=== PATIENT | female | born 1965 | race Caucasian/White ===

== ENCOUNTER 2022-05-07 19:40 | Emergency (ER) | payer OTHER, SELFPAY ==
--- NOTE | ~2022-05-07 | XR_ITS ---
EXAMINATION: XR chest 2V DATE: 05/07/2022 21:07 INDICATION: Chest pain and dizziness TECHNIQUE: PA and lateral views of the chest were obtained. COMPARISON: Chest radiograph dated 10/16/2009 FINDINGS: Small lung volumes. Curvilinear opacity projecting over the heart on the lateral projection consisten t with discoid atelectasis, unclear whether in the lingula or right middle lobe. No other airspace op acities, pulmonary edema, pleural effusion or pneumothorax. The cardiomediastinal silhouette is homar l. Moderate thoracic spondylosis. IMPRESSION: 1. Mild curvilinear atelectasis/scarring, unclear whether in the lingula or right middle lobe. Reviewed, dictated and finalized at location A. IMPRESSION: 1. Mild curvilinear atelectasis/scarring, unclear whether in the lingula or rig ht middle lobe.
[2022-05-07 19:41] VITALS: BP 162/102; PULSE 123; RESP 24; O2SAT 98
--- NOTE | 2022-05-07 19:44 | ECG_ITS ---
Measurements Intervals [place] Rate: 100 P: 40 [place]: 124 QRS: -12 QRSD: 107 T: 49 QT: 370 QTc: 478 Interpretive Statements SINUS TACHYCARDIA DELAYED PRECORDIAL R/S TRANSITION BORDERLINE ST-T WAVE ABNORMALITY- ANT/INF LEADS BORDERLINE ECG NO PREVIOUS ECG AVAILABLE FOR COMPARISON Electronically Signed On 05-08-2022 14:42:31 CDT by Sushil Madrid D.O.
[2022-05-07 20:06] LABS: Basophils Absolute Auto 0.1 K/mm3 (0.0-0.1); Basophils Percent Auto 0.6 % (0.2-1.2); Eosinophils Absolute Auto 0.3 K/mm3 (0-0.3); Hematocrit 43.5 % (37.0-47.0); Immature Granulocyte Absolute 0.03 K/mm3 (0.00-0.031); Immature Granulocyte Percent A 0.2 % (0-0.5); Lymphocytes Absolute Auto 4.34 K/mm3 (0.9-3.2); Lymphocytes Percent Auto 33.2 % (18.3-44.2); Mean Corpuscular HGB Conc 32.2 g/dl (32-36); Mean Corpuscular Hemoglobin 27.3 pg (26-34); Mean Platelet Volume 9.2 fl (7.4-10.4); Monocytes Absolute Auto 1.1 K/mm3 (0.1-0.6); Monocytes Percent Auto 8.5 % (2.6-8.5); Neutrophils Absolute Auto 7.3 K/mm3 (1.3-6.7); Neutrophils Percent Auto 55.5 % (45.5-73.1); Platelet Count Result 401 k/mm3 (150-375); Red Blood Count 5.12 M/mm3 (4.2-5.4); Red Cell Distribution Width 14.5 % (11.5-14.5); White Blood Count 13.1 K/mm3 (4.5-10.0)
[2022-05-07 20:18] LABS: Alanine Aminotransferase 30 U/L (6-35); Albumin Level 4.7 g/dL (3.5-5.1); Alkaline Phosphatase 80 U/L (38-126); Anion Gap 20 mmol/L (8-16); Aspartate Amino Transferase 34 U/L (14-36); Bilirubin,Total 0.9 mg/dL (0.2-1.3); Blood Urea Nitrogen 16 mg/dL (7-17); Calcium 9.4 mg/dL (8.4-10.2); Carbon Dioxide 17 mmol/L (22-30); Chloride 103 mmol/L (98-107); Estimated CRCL calculation 98 ml/min; Estimated Glomerular Filt Rate > 60; Glucose 126 mg/dL (65-110); Lipase 78 U/L (23-300); Potassium 3.8 mmol/L (3.4-5.0); Sodium 140 mmol/L (137-145)
[2022-05-07 20:20] LABS: INR 1.1; Prothrombin Time 13.4 Seconds (11.1-14.7)
[2022-05-07 20:21] LABS: Partial Thromboplastin Time 22.2 SECONDS (22.3-36.8)
[2022-05-07 20:28] LABS: Troponin I < 0.012 ng/mL (0.000-0.034)
[2022-05-07 21:30] VITALS: BP 173/80; PULSE 60; RESP 16; O2SAT 96
[2022-05-07 22:24] VITALS: BP 160/80; PULSE 61; RESP 13; O2SAT 94
[2022-05-07 23:22] LABS: Troponin I < 0.012 ng/mL (0.000-0.034)
--- NOTE | 2022-05-08 00:01 | ECG_ITS ---
Measurements Intervals [place] Rate: 79 P: 44 [place]: 134 QRS: 6 QRSD: 101 T: 22 QT: 398 QTc: 456 Interpretive Statements SINUS RHYTHM BORDERLINE ST-T WAVE ABNORMALITY- ANTERIOR LEADS BASELINE ARTIFACT- I, III, AVL, V2 BORDERLINE ECG NO PREVIOUS ECG AVAILABLE FOR COMPARISON Electronically Signed On 05-08-2022 7:01:12 CDT by Sushil Madrid D.O.
--- NOTE | 2022-05-08 00:03 | ED.DIZZY ---
HPI - Dizziness General Chief Complaint: Dizziness Stated Complaint: lightheaded, palpitations Time Seen by Provider: 05/07/22 23:58 Source: RN notes reviewed History of Present Illness HPI Narrative: Patient presents emergency department from home for dizziness. Patient states she is cutting the grass today when she began to feel very hot she states that that time she had stopped mowing and had tried to rest to see if she called states she got in a car turned on the air conditioner but continued to feel hot became lightheaded and fell like she may pass out she states she never had a syncopal episode but came to the emergency department for further evaluation states that this time she is feeling better she denies having any chest pain states she did feel short of breath during the episode denying abdominal pain nausea vomiting Related Data Allergies Allergy/AdvReac Type Severity Reaction Status Date / Time codeine Allergy Severe HIVES, SOB Verified 05/08/22 00:48 Review of Systems Review of Systems: Gen.: Denies fevers or chills Eyes: Denies eye pain or visual change ENT: Denies congestion Respiratory: Reports shortness of breath CV: Denies chest pain reports feeling of heart racing GI: Denies abdominal pain nausea, emesis or diarrhea Musculoskeletal: Denies back pain or muscle pain Neuro: Reports dizziness Skin: Denies rash Except as documented, all other systems reviewed and negative [facility] Past Medical History Medical History (Updated 05/08/22 @ 01:43 by Sameer Garcia DO) Hypertension Social History Social History (Updated 05/08/22 @ 00:04 by Sameer Garcia DO) Smoking status: Never smoker Exam Narrative: APPEARANCE: No acute distress, nontoxic, resting in bed EYES: EOMI HEENT: Normocephalic, atraumatic, OMM RESPIRATORY: No respiratory distress Clear to auscultation bilaterally with no rhonchi wheezing or rales. CARDIOVASCULAR: Regular rate and rhythm without murmurs rubs or gallops. ABDOMINAL: Soft, nontender, nondistended, no rebound or guarding MUSCULOSKELETAl: Moves all extremities. No clubbing, cyanosis or edema. NEURO: Awake and alert. Following commands, speech normal, no focal deficits SKIN:: Warm, dry. No rashes lesions or abrasions PSYCHIATRIC: Normal affect/mood, Course Course Emergency Course: Patient on registered nurse cardiac throughout stay in ED no arrhythmias noted Discussed with patient results of workup and diagnosis. Discussed need for follow-up with primary care, proper use of medication, and reasons to return to the emergency department. Patient understands and agrees to current treatment plan Vital Signs Vital signs: Vital Signs Pulse Rate 123 H 05/07/22 19:41 Respiratory Rate 24 H 05/07/22 19:41 Blood Pressure 162/102 H 05/07/22 19:41 Pulse Oximetry 98 05/07/22 19:41 Pulse Rate 63 05/08/22 01:03 Respiratory Rate 16 05/08/22 01:03 Blood Pressure 150/90 H 05/08/22 01:03 Pulse Oximetry 100 05/08/22 01:03 MDM - Dizziness MDM Narrative Medical decision making narrative: Patient presents for feeling lightheaded and dizzy with heart racing after mowing the yard outside today cannot cool off patient found to be dehydrated ED also noted to have urinary tract infection no arrhythmias noted on EKG 3 troponins negative in the emergency department patient was hydrated 2 L of fluid given antibiotics will discharge at this time with follow-up as an outpatient Lab Data Result diagrams: 05/07/22 19:58 05/07/22 19:58 Labs: Lab Results 05/07/22 05/07/22 05/07/22 Range/Units 19:57 19:58 19:58 WBC 13.1 H (4.5-10.0) K/mm3 RBC 5.12 (4.2-5.4) M/mm3 Hgb 14.0 (12.0-15.0) g/dL Hct 43.5 (37.0-47.0) % MCV 85.0 (80-100) fl MCH 27.3 (26-34) pg MCHC 32.2 (32-36) g/dl RDW 14.5 (11.5-14.5) % Plt Count 401 H (150-375) k/mm3 MPV 9.2 (7.4-10.4) fl Immature Gran % (Auto) 0.2 (0-0.5) % Ne
[2022-05-08 00:23] LABS: D Dimer 0.27 ug/mL (<0.48)
[2022-05-08 00:29] LABS: Appearance Urine Clear (Clear); Bilirubin Urine 1+ (Negative); Blood Urine Negative (Negative); Color Urine Yellow (Yellow); Glucose Urine UA Negative (Negative); Ketones Urine 4+ mg/dL (Negative); Leukocyte Esterase Ur 3+ LEU/UL (Negative); Nitrate Urine Negative (Negative); Protein Urine Trace mg/dL (Negative); Specific Grav Ur >= 1.030 (1.001-1.035); Urobilinogen Urine 0.2 mg/dL (<2.0); pH Urine 5.5 (5.0-9.0)
[2022-05-08] MEDS: SODIUM CHLORIDE 0.9% IV 1,000 ML 999 ML IV CONT ×2 (00:29→01:37)
[2022-05-08 00:30] VITALS: BP 150/90; PULSE 70; RESP 13; O2SAT 100
[2022-05-08 00:33] LABS: Add Urine Microscopic? YES; Bacteria Urine Trace /hpf; Mucus Urine Rare /lpf; Squamous Epithelial Cell Urine Few /hpf (Few); WBC Urine 31-50 /hpf
[2022-05-08 00:45] LABS: Creatine Kinase 41 U/L (30-135)
[2022-05-08 01:03] VITALS: BP 150/90; PULSE 63; RESP 16; O2SAT 100
[2022-05-08 01:30] VITALS: BP 134/85; PULSE 62; RESP 12; O2SAT 100
[2022-05-08 01:30] LABS: Lactic Acid Reflex 1.3 mmol/L (0.7-2.0)
[2022-05-08 02:00] VITALS: BP 126/87; PULSE 73; RESP 13; O2SAT 100
[2022-05-08 02:15] VITALS: BP 137/87; PULSE 60; RESP 15; O2SAT 100
== END 2022-05-08 02:36 | disposition home or self-care (01) ==
PROVIDERS: Emergency Medicine; Emergency Provider Emergency Medicine; PCP Internal Medicine
DX: N39.0 Urinary tract infection, site not specified (principal); E86.0 Dehydration; R00.2 Palpitations; R06.02 Shortness of breath; I10 Essential (primary) hypertension
CPT/HCPCS: 36415; 71046; 80053; 81001; 82550; 83605; 83690; 84484; 85025; 85380; 85610; 85730; 87086; 87088; 87147; 93005; 96361; 96365; 99284; J0696; J7030